=== PATIENT | male | born 1990 | race Caucasian/White ===

== ENCOUNTER 2018-08-30 11:38 | Emergency (ER) | payer BC ==
[~2018-08-30] VITALS: Ht 170.2 cm; Wt 97.5 kg
[~2018-08-30 11:38] MED LIST: HYDR-3730 PO; TRM50T PO
[2018-08-30] MEDS ORDERED: NS IV 1000 ML 1,000 ML IV ONE (11:58)
[2018-08-30 12:08] LABS: BASOPHILS % (AUTO) 0 % (0-10); EOSINOPHILS % (AUTO) 0 % (0-10); HEMATOCRIT 48 % (40-54); HEMOGLOBIN 17.5 G/DL (13.3-17.7); LYMPHOCYTES # (AUTO) 2.5 X 10^3 (1.0-4.0); LYMPHOCYTES % (AUTO) 35 % (12-44); MEAN CORPUSCULAR HEMOGLOBIN 31 PG (25-34); MEAN CORPUSCULAR HGB CONC 37 G/DL (32-36); MEAN CORPUSCULAR VOLUME 85 FL (80-99); MEAN PLATELET VOLUME 9.2 FL (7.4-10.4); MONOCYTES # (AUTO) 0.5 X 10^3 (0.0-1.0); MONOCYTES % (AUTO) 8 % (0-12); NEUTROPHILS % (AUTO) 57 % (42-75); PLATELET COUNT 322 10^3/uL (130-400); RED CELL DISTRIBUTION WIDTH 12.6 % (10.0-14.5)
--- NOTE | 2018-08-30 12:08 | ED Neurological Problem ---
General Chief Complaint: Neuro-Stroke Like Symptoms Stated Complaint: HIGH BP,DIZZINESS, DIFFICULT CONCENTRATION Nursing Triage Note: pt presents to ed via private auto from from Dr. Schaffer office. 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 reports no memory of the test itself but remebers being in class. reports symptoms starting about 0800. Nursing Sepsis Screen: No Definite Risk Source: patient Exam Limitations: no limitations History of Present Illness Date Seen by Provider: Aug 30, 2018 Time Seen by Provider: 11:42 Initial Comments Here with report of significant dizziness that started acutely at about 8 AM when he was sitting down take a test. He started feeling dizzy put his head down. Later his speech became slowed and he was having a problem keeping up with conversation and visual cues. He went to his doctor's office who then sent him here for further evaluation. He has never had anything like this before. Denies recent injury. Denies recent illness. Denies weakness. Arrives with friend. Timing/Duration: 1-3 hours Severity: moderate, severe Associated Symptoms: confusion; No fever/chills, No nausea/vomiting, No seizures; slurred speech, other (dizziness) Allergies and Home Medications Allergies Coded Allergies: No Known Drug Allergies (Unverified , 04/30/11) Home Medications No Active Prescriptions or Reported Meds Patient Home Medication List Home Medication List Reviewed: Yes Review of Systems Review of Systems Constitutional: see HPI, chills (are all is good around the above the shoulders. She is doing better so milligrams cataractThis but is getting the family agreed it's care may be just TIAs got up to make sure all other symptoms. I interpreted ago); No fever (still) Eyes: See HPI; Denies Inflammation, Denies Pain Ears, Nose, Mouth, Throat: see HPI Respiratory: no symptoms reported Cardiovascular: No palpitations, No syncope Gastrointestinal: No abdominal pain, No nausea (7), No vomiting Genitourinary: no symptoms reported Musculoskeletal: no symptoms reported Skin: no symptoms reported All Other Systems Reviewed Negative Unless Noted: Yes Past Szkmegw-Xmavht-Vyrenx Hx Past Med/Social Hx: Reviewed Nursing Past Med/Soc Hx Patient Social History Alcohol Use: Occasionally Uses Recreational Drug Use: No Smoking Status: Never a Smoker Recent Foreign Travel: No Contact w/Someone Who Travel: No Recent Infectious Disease Expo: No Physical Abuse: No Sexual Abuse: No Mistreated: No Fear: No Seasonal Allergies Seasonal Allergies: No Past Medical History Surgeries: Yes (right meniscus surgery, urethral dilation- 8yrs old) Appendectomy, Orthopedic Respiratory: No Cardiac: No Neurological: No Reproductive Disorders: No Genitourinary: No Gastrointestinal: No Musculoskeletal: No Endocrine: No HEENT: No Cancer: No Psychosocial: No Integumentary: No Blood Disorders: No Family Medical History Reviewed Nursing Family Hx Arthritis 19 MOTHER Prostate cancer 19 FATHER Thyroid disease 19 MOTHER No Pertinent Family Hx Physical Exam Vital Signs Vital Signs - First Documented 08/30/18 11:50 Temp 99.1 Pulse 113 Resp 20 B/P (MAP) 173/109 (130) Pulse Ox 100 Capillary Refill : Less Than 3 Seconds Height, Weight, BMI Height: 5'7.00" Weight: 215lbs. 3.2oz. 97.680567tw; 32.3 BMI Method:Stated General Appearance: WD/WN, no apparent distress HEENT: PERRL/EOMI, TMs normal, pharynx normal Neck: full range of motion, supple Respiratory: lungs clear, normal breath sounds Cardiovascular: no murmur, tachycardia Gastrointestinal: non tender, soft Back: normal inspection, no CVA tenderness, no vertebral tenderness Extremities: non-tender, normal inspection Neurologic/Psychiatric: alert, oriented x 3 Crainal Nerves: normal hearing, normal speech, PERRL Coordination/Gait: normal finger to nose Motor/Sensory: no motor deficit, no sensory deficit, no pronator drift Skin: normal color, warm/dry Progress/Results/Core Measures Results/Orders Lab Results Laboratory Tests Test 08/30/18 11:49 08/30/18 11:50 08/30/18 13:31 Range/Units Glucometer 93 70-110 MG/DL White Blood Count 7.0 4.3-11.0 10^3/uL Red Blood Count 5.62 4.35-5.85 10^6/uL Hemoglobin 17.5 13.3-17.7 G/DL Hematocrit 48 40-54 % Mean Corpuscular Volume 85 80-99 FL Mean Corpuscular Hemoglobin 31 25-34 PG Mean Corpuscular Hemoglobin Concent 37 H 32-36 G/DL Red Cell Distribution Width 12.6 10.0-14.5 % Platelet Count 322 130-400 10^3/uL Mean Platelet Volume 9.2 7.4-10.4 FL Neutrophils (%) (Auto) 57 42-75 % Lymphocytes (%) (Auto) 35 12-44 % Monocytes (%) (Auto) 8 0-12 % Eosinophils (%) (Auto) 0 0-10 % Basophils (%) (Auto) 0 0-10 % Neutrophils # (Auto) 4.0 1.8-7.8 X 10^3 Lymphocytes # (Auto) 2.5 1.0-4.0 X 10^3 Monocytes # (Auto) 0.5 0.0-1.0 X 10^3 Eosinophils # (Auto) 0.0 0.0-0.3 10^3/uL Basophils # (Auto) 0.0 0.0-0.1 10^3/uL Prothrombin Time 12.6 12.2-14.7 SEC INR Comment 0.9 0.8-1.4 Activated Partial Thromboplast Time 31 24-35 SEC D-Dimer < 0.27 0.00-0.49 UG/ML Sodium Level 139 135-145 MMOL/L Potassium Level 4.1 3.6-5.0 MMOL/L Chloride Level 102 98-107 MMOL/L Carbon Dioxide Level 26 21-32 MMOL/L Anion Gap 11 5-14 MMOL/L Blood Urea Nitrogen 13 7-18 MG/DL Creatinine 1.29 0.60-1.30 MG/DL Estimat Glomerular Filtration Rate > 60 BUN/Creatinine Ratio 10 Glucose Level 95 70-105 MG/DL Calcium Level 10.5 H 8.5-10.1 MG/DL Corrected Calcium 8.5-10.1 MG/DL Total Bilirubin 0.9 0.1-1.0 MG/DL Aspartate Amino Transf (AST/SGOT) 18 5-34 U/L Alanine Aminotransferase (ALT/SGPT) 49 0-55 U/L Alkaline Phosphatase 79 40-136 U/L Troponin I < 0.028 <0.028 NG/ML Total Protein 8.9 H 6.4-8.2 GM/DL Albumin 5.2 H 3.2-4.5 GM/DL Urine Color YELLOW Urine Clarity CLEAR Urine pH 7 5-9 Urine Specific Reeves 1.005 L 1.016-1.022 Urine Protein NEGATIVE NEGATIVE Urine Glucose (UA) NEGATIVE NEGATIVE Urine Ketones NEGATIVE NEGATIVE Urine Nitrite NEGATIVE NEGATIVE Urine Bilirubin NEGATIVE NEGATIVE Urine Urobilinogen NORMAL NORMAL MG/DL Urine Leukocyte Esterase NEGATIVE NEGATIVE Urine RBC (Auto) NEGATIVE NEGATIVE Urine RBC NONE /HPF Urine WBC NONE /HPF Urine Crystals NONE /LPF Urine Bacteria NEGATIVE /HPF Urine Casts NONE /LPF Urine Mucus NEGATIVE /LPF Urine Culture Indicated NO My Orders Orders - MICHELA CARMONA MD Cbc With Automated Diff (08/30/18 11:58) Protime With Inr (08/30/18 11:58) Partial Thromboplastin Time (08/30/18 11:58) Comprehensive Metabolic Panel (08/30/18 11:58) Fibrin Degradation Products (08/30/18 11:58) Troponin I (08/30/18 11:58) Ua Culture If Indicated (08/30/18 11:58) Chest 1 View, Ap/Pa Only (08/30/18 11:58) Ekg Tracing (08/30/18 11:58) Nothing By Mouth (08/30/18 Dinner) Accucheck Stat ONCE (08/30/18 11:58) Saline Lock/Iv-Start (08/30/18 11:58) Saline Lock/Iv-Start (08/30/18 11:58) Vital Signs Stroke Patient Q15M (08/30/18 11:58) O2 (08/30/18 11:58) Intake & Output 06,14,22 (08/30/18 11:58) Monitor-Rhythm Ecg Trace Only (08/30/18 11:58) Dysphagia Screening Tool (08/30/18 11:58) Post Thrombolytic Adminstratio (08/30/18 11:58) Lipid Panel (08/31/18 06:00) Saline Lock/Iv-Start (08/30/18 11:58) Ns Iv 1000 Ml (Sodium Chloride 0.9%) (08/30/18 11:58) Iohexol Injection (Omnipaque 350 Mg/Ml 1 (08/30/18 12:15) Received Contrast (Hold Metformin- Contr (08/30/18 12:15) Ct Angio Head/Neck (08/30/18 12:02) Meclizine Tablet (Antivert Tablet) (08/30/18 12:45) Dexamethasone Injection (Decadron Inject (08/30/18 14:00) Medications Given in ED Current Medications Medications Dose Ordered Sig/Tobias Route Start Time Stop Time Status Last Admin Dose Admin Dexamethasone Sodium Phosphate 10 mg ONCE ONCE IV 08/30/18 14:00 08/30/18 14:01 DC 08/30/18 14:15 10 MG Meclizine HCl 25 mg ONCE ONCE PO 08/30/18 12:45 08/30/18 12:46 DC 08/30/18 13:12 25 MG Sodium Chloride 1,000 ml @ 0 mls/hr Q0M ONCE IV 08/30/18 11:58 08/30/18 12:01 DC 08/30/18 12:14 0 MLS/HR Vital Signs/I&O 08/30/18 11:50 Temp 99.1 Pulse 113 Resp 20 B/P (MAP) 173/109 (130) Pulse Ox 100 Blood Pressure Mean: 130 Progress Progress Note : Progress Note Seen and evaluated. Stroke activation initiated. Stroke order set initiated. Rapid CT assessment complete. Stroke scale 0 and no bleed. No indication for TPA at this point. CT assessment included CT angiogram of the head and neck. Patient is still dizzy. Meclizine 25 mg by mouth given. Fluids continue. 1450: Patient has had Decadron 10 mg IV and I have discussed the case with his PCP, . Patient is free of symptoms currently. Only findings are left maxillary sinusitis. Patient does have history of inner ear problems as a child. This may be cause of his problems. We will go ahead and treat sinusitis. I did discuss all the findings and concerns with the patient and his father. At this point patient is safe for discharge home. Discharged home with return precautions. Patient verbalize understanding instructions and agreement with plan. Initial ECG Impression Date: Aug 30, 2018 Initial ECG Impression Time: 11:50 Initial ECG Rate: 89 Initial ECG Rhythm: Normal Sinus Initial ECG Comparisson: Unchanged Comment Sinus rhythm. Inferior Q waves. Normal axis. No evidence of ST elevation SD. Similar to previous of 02/28/13. Interpreted by me. Diagnostic Imaging Diagonstic Imaging: CT Plain Films/CT/US/NM/MRI: head, other Comments [facility], [place] NAME: SUNDAY BERMEONIRANJAN Hardy [facility] REC#: [id number] PT STATUS: REG ER : 1990 PHYSICIAN: MICHELA CARMONA MD ADMIT DATE: 08/30/18/ER Draft Date of Exam:08/30/18 CT ANGIO HEAD/NECK CLINICAL INDICATION: Patient with blood pressure, dizziness. EXAMS: 1: Head CT with and without IV contrast. 2: CT angiogram of the head and neck performed with 75 cc of Omnipaque 350 IV contrast. Sagittal and coronal MIP reformations were created for better visualization of vascular anatomy. COMPARISON: None. FINDINGS: HEAD CT: There is no evidence of acute cerebral infarct, intracranial hemorrhage, or gross mass effect. There is no abnormal IV contrast enhancement. The brain parenchymal volume appears appropriate for patient's age. There is normal claire-white matter distinction. There is no significant midline shift or herniation. There is no evidence of hydrocephalus. The basal cisterns are unremarkable. The skull, extracranial soft tissue, and orbits are unremarkable. The paranasal sinuses are unremarkable. Temporal bones show no significant abnormality. CT ANGIOGRAM: There is dense contrast seen within the left subclavian vein, left innominate vein, and superior vena cava which obscures portions of the aortic arch and proximal great vessels. There is common origin of the brachiocephalic artery and left common carotid artery which correlates to bovine arch. Three-vessel aortic arch is seen. The mid and distal portion of the left subclavian artery is obscured by dense streak artifact. Otherwise, the remainder of the proximal left subclavian artery is patent. The brachiocephalic artery and proximal portions of the right CCA and right brachiocephalic artery are obscured by streak artifact. Otherwise, the right subclavian artery and right common carotid artery are patent. The left common carotid artery is patent. The bilateral cervical ICA and bilateral ECA are patent. Codominant cervical vertebral arteries are seen. The visualized portions of the bilateral cervical vertebral arteries are patent. The intradural bilateral vertebral arteries, basilar artery, superior cerebellar artery, and bilateral waxer are patent. The petrous and cavernous portions of the bilateral ICA are patent. The bilateral A1 ACAs, anterior communicating artery, and A2 ACAs and their distal branches are patent. The bilateral MCAs are patent. The neck soft tissue structures and visualized upper lung bourgeois are clear. There is mild straightening of the cervical spine which is nonspecific. There is no significant bony central canal or neural foramen narrowing. There is mild mucosal thickening involving the left maxillary sinus. Temporal bone structures show no significant abnormality. The dural venous sinuses are patent. IMPRESSION: 1: There is mild left maxillary sinus disease. Otherwise, unremarkable CT scan of the brain. 2: Unremarkable CT angiogram of the [place] and neck. The dural venous sinuses are patent. Dictated on workstation # [id number] Dict: 08/30/18 1255 Trans: 08/30/18 1317 [id number] Interpreted by: BRANDEN ADKINS MD Electronically signed by: Estelagonsbianca Imaging: Xray Plain Films/CT/US/NM/MRI: chest Comments [facility], [place] NAME: FABIENNE BERMEO V MED REC#: [id number] PT STATUS: REG ER : 1990 PHYSICIAN: MICHELA CARMONA MD ADMIT DATE: 08/30/18/ER Draft Date of Exam:08/30/18 CHEST 1 VIEW, AP/PA ONLY INDICATION: Dizziness and lightheadedness. TIME OF EXAM: 01:14 p.m. COMPARISON: No prior studies are available for comparison. FINDINGS: The heart size is normal. The pulmonary vascularity is unremarkable. The lungs are clear. No infiltrate, effusion or pneumothorax is detected. IMPRESSION: No acute cardiopulmonary process is detected. Dictated on workstation # [id number] Dict: 08/30/18 1339 Trans: 08/30/18 1342 [facility] [id number] Interpreted by: LISHA DORADO MD Electronically signed by: Departure Impression Primary Impression: Left maxillary sinusitis Additional Impression: Dizziness Disposition: 01 HOME, SELF-CARE Condition: Improved Departure-Patient Inst. Decision time for Depature: 15:01 Referrals: MODESTO WRAY MD (PCP/Family) Primary Care Physician Patient Instructions: Sinusitis, Adult (DC), Vertigo (a Type of Dizziness) (DC) Add. Discharge Instructions: All discharge instructions reviewed with patient and/or family. Voiced understanding. Take medications as directed. Drink plenty of fluids. You may get over-the- counter meclizine 25 mg and take one every 8 hours as needed for dizziness. Take other medications as directed. Follow-up with your Dr. in a few days for recheck and further evaluation. Return for worsening, fever, vomiting, weakness , breathing problems or other concerns as needed. Scripts Cephalexin (Cephalexin) 500 Mg Tablet 500 MG PO TID, #30 TAB 0 Refills Prov: MICHELA CARMONA MD 08/30/18 Copy Copies To 1: MODESTO WRAY MD, TIMOTHY D MD Aug 30, 2018 12:08
[2018-08-30] MEDS ORDERED: IOHEXOL 350 MG/ML 100 ML (OMNIPAQUE 350) VIAL IV ONE (12:15)
[2018-08-30] MEDS ORDERED: HOLD METFORMIN - RECEIVED CONTRAST 20 ML VIAL IV SCH (12:15)
[2018-08-30 12:16] LABS: INR 0.9 (0.8-1.4); PARTIAL THROMBOPLASTIN TIME 31 SEC (24-35); PROTHROMBIN TIME PATIENT 12.6 SEC (12.2-14.7)
[2018-08-30 12:22] LABS: ALANINE AMINOTRANSFERASE 49 U/L (0-55); ALBUMIN 5.2 GM/DL (3.2-4.5); ALKALINE PHOSPHATASE 79 U/L (40-136); BILIRUBIN,TOTAL 0.9 MG/DL (0.1-1.0); BUN/CREATININE RATIO 10; CALCIUM 10.5 MG/DL (8.5-10.1); CARBON DIOXIDE 26 MMOL/L (21-32); CHLORIDE 102 MMOL/L (98-107); CREATININE SERUM 1.29 MG/DL (0.60-1.30); GFR ESTIMATED > 60; GLUCOSE 95 MG/DL (70-105); POTASSIUM 4.1 MMOL/L (3.6-5.0); SODIUM 139 MMOL/L (135-145); TOTAL PROTEIN 8.9 GM/DL (6.4-8.2)
[2018-08-30] MEDS ORDERED: MECLIZINE 25 MG (ANTIVERT) TAB PO ONE (12:45)
[2018-08-30 13:01] LABS: FIBRIN DEGRADATION PRODUCTS < 0.27 UG/ML (0.00-0.49)
--- NOTE | 2018-08-30 13:18 | Diagnostic Imaging Report ---
CLINICAL INDICATION: Patient with blood pressure, dizziness. EXAMS: 1: Head CT with and without IV contrast. 2: CT angiogram of the head and neck performed with 75 cc of Omnipaque 350 IV contrast. Sagittal and coronal MIP reformations were created for better visualization of vascular anatomy. COMPARISON: None. FINDINGS: HEAD CT: There is no evidence of acute cerebral infarct, intracranial hemorrhage, or gross mass effect. There is no abnormal IV contrast enhancement. The brain parenchymal volume appears appropriate for patient's age. There is normal claire-white matter distinction. There is no significant midline shift or herniation. There is no evidence of hydrocephalus. The basal cisterns are unremarkable. The skull, extracranial soft tissue, and orbits are unremarkable. The paranasal sinuses are unremarkable. Temporal bones show no significant abnormality. CT ANGIOGRAM: There is dense contrast seen within the left subclavian vein, left innominate vein, and superior vena cava which obscures portions of the aortic arch and proximal great vessels. There is common origin of the brachiocephalic artery and left common carotid artery which correlates to bovine arch. Three-vessel aortic arch is seen. The mid and distal portion of the left subclavian artery is obscured by dense streak artifact. Otherwise, the remainder of the proximal left subclavian artery is patent. The brachiocephalic artery and proximal portions of the right CCA and right brachiocephalic artery are obscured by streak artifact. Otherwise, the right subclavian artery and right common carotid artery are patent. The left common carotid artery is patent. The bilateral cervical ICA and bilateral ECA are patent. Codominant cervical vertebral arteries are seen. The visualized portions of the bilateral cervical vertebral arteries are patent. The intradural bilateral vertebral arteries, basilar artery, superior cerebellar artery, and bilateral x ray developer are patent. The petrous and cavernous portions of the bilateral ICA are patent. The bilateral A1 ACAs, anterior communicating artery, and A2 ACAs and their distal branches are patent. The bilateral MCAs are patent. The neck soft tissue structures and visualized upper lung bourgeois are clear. There is mild straightening of the cervical spine which is nonspecific. There is no significant bony central canal or neural foramen narrowing. There is mild mucosal thickening involving the left maxillary sinus. Temporal bone structures show no significant abnormality. The dural venous sinuses are patent. IMPRESSION: 1: There is mild left maxillary sinus disease. Otherwise, unremarkable CT scan of the brain. 2: Unremarkable CT angiogram of the [place] and neck. The dural venous sinuses are patent. Dictated by: Dictated on workstation # [id number]
[2018-08-30 13:42] LABS: BILIRUBIN,URINE NEGATIVE (NEGATIVE); CLARITY,URINE CLEAR; COLOR,URINE YELLOW; GLUCOSE, URINE (UA) NEGATIVE (NEGATIVE); KETONES,URINE NEGATIVE (NEGATIVE); LEUKOCYTE ESTERASE ,URINE NEGATIVE (NEGATIVE); NITRITE,URINE NEGATIVE (NEGATIVE); PH,URINE 7 (5-9); PROTEIN,URINE NEGATIVE (NEGATIVE); UROBILINOGEN,URINE NORMAL (NORMAL)
--- NOTE | 2018-08-30 13:43 | Diagnostic Imaging Report ---
INDICATION: Dizziness and lightheadedness. TIME OF EXAM: 01:14 p.m. COMPARISON: No prior studies are available for comparison. FINDINGS: The heart size is normal. The pulmonary vascularity is unremarkable. The lungs are clear. No infiltrate, effusion or pneumothorax is detected. IMPRESSION: No acute cardiopulmonary process is detected. Dictated by: Dictated on workstation # [id number]
[2018-08-30 13:52] LABS: BACTERIA,URINE NEGATIVE /HPF
[2018-08-30] MEDS ORDERED: DEXAMETHASONE 10 MG/ML (DECADRON) 1 ML VIAL IV ONE (14:00)
[2018-08-30] MEDS ORDERED: CEPH500T PO (15:03)
[2018-08-30 15:12] VITALS: BP 133/78
== END 2018-08-30 15:12 | disposition home or self-care (01) ==
LOC: EDUNIT# 11:38 → ER 11:40
DX: J32.9 Chronic sinusitis, unspecified (principal); R42 Dizziness and giddiness; Z98.890 Other specified postprocedural states; Z90.49 Acquired absence of other specified parts of digestive tract; Z85.46 Personal history of malignant neoplasm of prostate
CPT/HCPCS: 36415; 70496; 70498; 71045; 80053; 81000; 82962; 84484; 85025; 85379; 85610; 85730; 93005; 93041; 96361; 96374

== ENCOUNTER → 2020-03-08 | Outpatient (CLI) | payer BC, OTHER ==
[~2020-03-08] MED LIST changes: +CEPH500T PO
[2020-03-08 09:27] LABS: BASOPHILS % (AUTO) 0 % (0-10); EOSINOPHILS # (AUTO) 0.1 10^3/uL (0.0-0.3); EOSINOPHILS % (AUTO) 1 % (0-10); HEMATOCRIT 49 % (40-54); HEMOGLOBIN 16.8 g/dL (13.3-17.7); LYMPHOCYTES # (AUTO) 3.8 10^3/uL (1.0-4.0); LYMPHOCYTES % (AUTO) 54 % (12-44); MEAN CORPUSCULAR HEMOGLOBIN 31 pg (25-34); MEAN CORPUSCULAR HGB CONC 35 g/dL (32-36); MEAN CORPUSCULAR VOLUME 88 fL (80-99); MEAN PLATELET VOLUME 9.3 fL (9.0-12.2); MONOCYTES # (AUTO) 0.5 10^3/uL (0.0-1.0); MONOCYTES % (AUTO) 6 % (0-12); NEUTROPHILS # (AUTO) 2.7 10^3/uL (1.8-7.8); NEUTROPHILS % (AUTO) 38 % (42-75); PLATELET COUNT 271 10^3/uL (130-400)
[2020-03-08 09:36] LABS: ALBUMIN 4.6 GM/DL (3.2-4.5); CHLORIDE 105 MMOL/L (98-107); POTASSIUM 4.4 MMOL/L (3.6-5.0); SODIUM 141 MMOL/L (135-145)
[2020-03-08 09:37] LABS: CALCIUM 9.8 MG/DL (8.5-10.1)
[2020-03-08 09:38] LABS: TRIGLYCERIDES 92 MG/DL (<150); VLDL CHOLESTEROL 18 MG/DL (5-40)
[2020-03-08 09:39] LABS: GLUCOSE 92 MG/DL (70-105)
[2020-03-08 09:40] LABS: BILIRUBIN,TOTAL 0.7 MG/DL (0.1-1.0); CARBON DIOXIDE 27 MMOL/L (21-32)
[2020-03-08 09:42] LABS: ALKALINE PHOSPHATASE 77 U/L (40-136); CREATININE SERUM 1.26 MG/DL (0.60-1.30); GFR ESTIMATED > 60
[2020-03-08 09:43] LABS: CHOLESTEROL 189 MG/DL (< 200)
[2020-03-08 09:44] LABS: BUN/CREATININE RATIO 9
[2020-03-08 09:45] LABS: ALANINE AMINOTRANSFERASE 24 U/L (0-55); HDL CHOLESTEROL 46 MG/DL (40-60); MAGNESIUM 1.8 MG/DL (1.6-2.4)
[2020-03-08 10:17] LABS: ERYTHROCYTE SEDIMENTATION RATE 1 MM/HR (0-15)
== END ==
LOC: LAB 09:03
PROVIDERS: ATTEND Internal Medicine Cardiovascular Disease
DX: R55 Syncope and collapse (principal); R00.2 Palpitations
CPT/HCPCS: 36415; 80053; 80061; 83735; 84443; 85025; 85652

== ENCOUNTER → 2020-03-11 | Day surgery (SDC) | payer OTHER ==
[~2020-03-11] MED LIST changes: +LIDOCAINE 1% INJ 20 ML 20 ML VIAL ONE
[2020-03-11 11:12] VITALS: BP 139/89
--- NOTE | 2020-03-11 11:36 | Cardiac Procedure Note-CS/ASA ---
Pre-Procedure Note Pre-Op Procedure Note H&P Reviewed The H&P was reviewed, patient examined and no changes noted. Date H&P Reviewed: Mar 11, 2020 Time H&P Reviewed: 11:36 Conscious Sedation Pre-Proced Time 11:36 ASA Score 3 For ASA 3 and 4: Consider anesthesia and medical clearance. Also, for patients with a history of failed moderate sedation consider anesthesia. Airway Lungs Heart ASA score ASA 1: a normal healthy patient ASA 2: a patient with a mild systemic disease (mid diabetes, controlled hypertension, obesity ASA 3: a patient with a severe systemic disease that limits activity (angina, COPD, prior Myocardial infarction) ASA 4: a patient with an incapacitating disease that is a constant threat to life (CHF, renal failure) ASA 5: a moribund patient not expected to survive 24 hrs. (ruptured aneurysm) ASA 6: a declared brain- patient whose organs are being harvested. For emergent operations, add the letter E after the classification Mallampati Classification Grade 2 Sedation Plan Analgesia, Amnesia, Plan communicated to team members, Discussed options with patient/fam, Discussed risks with patient/fam The patient is an appropriate candidate to undergo the planned procedure, sedation, and anesthesia. The patient immediately re-assessed prior to indication. ISA BAILEY MD FACP FAC CCDS Mar 11, 2020 11:36
--- NOTE | 2020-03-11 13:52 | OPERATIVE REPORT ---
DATE OF SERVICE: PREOPERATIVE DIAGNOSES: Near syncope and palpitations. POSTOPERATIVE DIAGNOSES: Near syncope and palpitations. PROCEDURE: Implantable loop recorder implantation. INDICATIONS: The patient is a 29-year-old man who has been experiencing near syncope and palpitations. These episodes are infrequent. Implantable loop recorder implantation was carried out after having obtained an informed consent. DESCRIPTION OF PROCEDURE: [facility] The left prepectoral area was prepared and draped in the usual sterile fashion. Lidocaine 1% was used for local anesthesia. The tools provided with the [employer]hare Reveal LINQ device were used to make a subcutaneous pocket anterior to the fourth intercostal space on the left side into which the device was placed and the skin edges were closed with Dermabond and Steri-Strips. He tolerated the procedure well. Job ID: [id number] DocumentID: [id number] Dictated Date: 03/11/2020 11:46:44 Etched Circuit Processor Date: 03/11/2020 13:52:07 Dictated By: ISA BAILEY MD, MA, FACP, FACC,
== END | disposition home or self-care (01) ==
LOC: CATH 10:43
PROVIDERS: ATTEND Internal Medicine Cardiovascular Disease
DX: R55 Syncope and collapse (principal); R00.2 Palpitations
CPT/HCPCS: 33285; C1764

== ENCOUNTER 2020-03-12 21:05 | Emergency (ER) | payer OTHER ==
[~2020-03-12] VITALS: Ht 170.2 cm; Wt 95.5 kg
[~2020-03-12 21:05] MED LIST changes: -LIDOCAINE 1% INJ 20 ML 20 ML VIAL ONE
--- NOTE | 2020-03-12 21:11 | NUR ---
loop recorder interpreted/sent by eva marquez
[2020-03-12 21:25] LABS: BASOPHILS % (AUTO) 0 % (0-10); EOSINOPHILS # (AUTO) 0.1 10^3/uL (0.0-0.3); EOSINOPHILS % (AUTO) 1 % (0-10); HEMATOCRIT 49 % (40-54); HEMOGLOBIN 17.4 g/dL (13.3-17.7); LYMPHOCYTES # (AUTO) 2.2 10^3/uL (1.0-4.0); LYMPHOCYTES % (AUTO) 25 % (12-44); MEAN CORPUSCULAR HEMOGLOBIN 31 pg (25-34); MEAN CORPUSCULAR HGB CONC 35 g/dL (32-36); MEAN CORPUSCULAR VOLUME 87 fL (80-99); MEAN PLATELET VOLUME 9.4 fL (9.0-12.2); MONOCYTES # (AUTO) 0.6 10^3/uL (0.0-1.0); MONOCYTES % (AUTO) 6 % (0-12); NEUTROPHILS # (AUTO) 5.8 10^3/uL (1.8-7.8); NEUTROPHILS % (AUTO) 68 % (42-75); PLATELET COUNT 295 10^3/uL (130-400); WHITE BLOOD COUNT 8.6 10^3/uL (4.3-11.0)
[2020-03-12] MEDS ORDERED: meTOprolol 5 MG/5 ML (LOPRESSOR) VIAL IV ONE (21:30)
[2020-03-12 21:36] LABS: ALBUMIN 4.8 GM/DL (3.2-4.5); CHLORIDE 102 MMOL/L (98-107); SODIUM 139 MMOL/L (135-145)
[2020-03-12 21:37] LABS: CALCIUM 9.9 MG/DL (8.5-10.1); INR 0.9 (0.8-1.4); PROTHROMBIN TIME PATIENT 12.7 SEC (12.2-14.7)
--- NOTE | 2020-03-12 21:37 | Diagnostic Imaging Report ---
PATIENT HISTORY: Chest pain. Dizziness and syncope. TECHNIQUE: Single frontal view of the chest. COMPARISON: 08/30/2018. FINDINGS: The lung volumes are normal. No focal consolidation is seen. No large pleural effusion or pneumothorax is seen. The cardiomediastinal silhouette is normal in size and contour. No acute osseous abnormality is seen. surveillance system monitor device is noted. IMPRESSION: No acute pulmonary abnormality seen. Dictated by: Dictated on workstation # [id number]
[2020-03-12 21:38] LABS: GLUCOSE 104 MG/DL (70-105)
[2020-03-12 21:39] LABS: TOTAL PROTEIN 8.5 GM/DL (6.4-8.2)
[2020-03-12 21:40] LABS: BILIRUBIN,TOTAL 0.6 MG/DL (0.1-1.0); CARBON DIOXIDE 25 MMOL/L (21-32)
[2020-03-12 21:42] LABS: ALKALINE PHOSPHATASE 98 U/L (40-136); CREATININE SERUM 1.37 MG/DL (0.60-1.30); GFR ESTIMATED > 60
[2020-03-12 21:43] LABS: BUN/CREATININE RATIO 11
[2020-03-12 21:45] LABS: ALANINE AMINOTRANSFERASE 28 U/L (0-55); MAGNESIUM 2.1 MG/DL (1.6-2.4)
--- NOTE | 2020-03-12 21:50 | ED Cardiac General ---
History of Present Illness General Chief Complaint: Cardiac/General Problems Stated Complaint: PALPITATIONS Nursing Triage Note: c/o palpitations/near syncope since approx. 1900. loop recorder placed 03/11/2020 Source: patient, old records Exam Limitations: no limitations History of Present Illness Date Seen by Provider: Mar 12, 2020 Time Seen by Provider: 21:07 Initial Comments This 29-year-old young man presents to the emergency room with palpitations and tachycardia. He has been under evaluation by Dr. Agee for episodes of palpitations and near syncope. He had a loop recorder placed yesterday. He denies near syncope, shortness of breath, or chest pain this evening. He denies any use of stimulants or illicit substances. He has not had any recent alcohol. Symptoms started within 2 hours of presentation. Allergies and Home Medications Allergies Coded Allergies: No Known Drug Allergies (Unverified , 04/30/11) Home Medications Cephalexin 500 Mg Tablet, 500 MG PO TID Prescribed by: MICHELA CARMONA on 08/30/18 1503 Patient Home Medication List Home Medication List Reviewed: Yes Review of Systems Review of Systems Constitutional: no symptoms reported EENTM: No Symptoms Reported Respiratory: No Symptoms Reported Cardiovascular: See HPI Gastrointestinal: Nausea Genitourinary: No Symptoms Reported Musculoskeletal: no symptoms reported Skin: no symptoms reported Psychiatric/Neurological: No Symptoms Reported Endocrine: No Symptoms Reported Hematologic/Lymphatic: No Symptoms Reported Past Ilzdxlt-Mjafiw-Skdcxc Hx Past Med/Social Hx: Reviewed Nursing Past Med/Soc Hx Patient Social History Alcohol Use: Denies Use Recreational Drug Use: No Smoking Status: Never a Smoker Recent Foreign Travel: No Contact w/Someone Who Travel: No Recent Infectious Disease Expo: No Recent Hopitalizations: No Immunizations Up To Date Tetanus Booster (TDap): Unknown Seasonal Allergies Seasonal Allergies: No Past Medical History Surgeries: Yes (right meniscus surgery, urethral dilation- 8yrs old, loop recorder placed) Appendectomy, Cardiac (loop recorder), Orthopedic Respiratory: No Cardiac: Yes (near syncope) Irregular Heartbeat, Palpitations Neurological: No Reproductive Disorders: No Genitourinary: No Gastrointestinal: No Musculoskeletal: No Endocrine: No HEENT: No Cancer: No Psychosocial: No Integumentary: No Blood Disorders: No Family Medical History Arthritis 19 MOTHER Prostate cancer 19 FATHER Thyroid disease 19 MOTHER No Pertinent Family Hx Physical Exam Vital Signs Vital Signs - First Documented 03/12/20 21:08 Temp 36.2 Pulse 120 Resp 18 B/P (MAP) 144/104 (117) Pulse Ox 100 O2 Delivery Room Air Capillary Refill : Less Than 3 Seconds Height, Weight, BMI Height: 5'7.00" Weight: 215lbs. 3.2oz. 97.237347ua; 32.00 BMI Method:Stated General Appearance: No Apparent Distress, WD/WN HEENT: PERRL/EOMI, Normal ENT Inspection Neck: Normal Inspection Respiratory: Lungs Clear, Normal Breath Sounds, No Accessory Muscle Use Cardiovascular: No Edema, No Murmur, Tachycardia Gastrointestinal: No Distended Extremity: Normal Inspection, No Pedal Edema Neurologic/Psychiatric: Alert, Oriented x3, No Motor/Sensory Deficits, Normal Mood/Affect, director talent acquisition II-XII Norm as Tested Skin: Normal Color, Warm/Dry Progress/Results/Core Measures Results/Orders Lab Results Laboratory Tests Test 03/12/20 21:18 Range/Units White Blood Count 8.6 4.3-11.0 10^3/uL Red Blood Count 5.69 H 4.30-5.52 10^6/uL Hemoglobin 17.4 13.3-17.7 g/dL Hematocrit 49 40-54 % Mean Corpuscular Volume 87 80-99 fL Mean Corpuscular Hemoglobin 31 25-34 pg Mean Corpuscular Hemoglobin Concent 35 32-36 g/dL Red Cell Distribution Width 11.4 10.0-14.5 % Platelet Count 295 130-400 10^3/uL Mean Platelet Volume 9.4 9.0-12.2 fL Immature Granulocyte % (Auto) 0 % Neutrophils (%) (Auto) 68 42-75 % Lymphocytes (%) (Auto) 25 12-44 % Monocytes (%) (Auto) 6 0-12 % Eosinophils (%) (Auto) 1 0-10 % Basophils (%) (Auto) 0 0-10 % Neutrophils # (Auto) 5.8 1.8-7.8 10^3/uL Lymphocytes # (Auto) 2.2 1.0-4.0 10^3/uL Monocytes # (Auto) 0.6 0.0-1.0 10^3/uL Eosinophils # (Auto) 0.1 0.0-0.3 10^3/uL Basophils # (Auto) 0.0 0.0-0.1 10^3/uL Immature Granulocyte # (Auto) 0.0 0.0-0.1 10^3/uL Prothrombin Time 12.7 12.2-14.7 SEC INR Comment 0.9 0.8-1.4 Activated Partial Thromboplast Time 30 24-35 SEC Sodium Level 139 135-145 MMOL/L Potassium Level 4.0 3.6-5.0 MMOL/L Chloride Level 102 98-107 MMOL/L Carbon Dioxide Level 25 21-32 MMOL/L Anion Gap 12 5-14 MMOL/L Blood Urea Nitrogen 15 7-18 MG/DL Creatinine 1.37 H 0.60-1.30 MG/DL Estimat Glomerular Filtration Rate > 60 BUN/Creatinine Ratio 11 Glucose Level 104 70-105 MG/DL Calcium Level 9.9 8.5-10.1 MG/DL Corrected Calcium 8.5-10.1 MG/DL Magnesium Level 2.1 1.6-2.4 MG/DL Total Bilirubin 0.6 0.1-1.0 MG/DL Aspartate Amino Transf (AST/SGOT) 13 5-34 U/L Alanine Aminotransferase (ALT/SGPT) 28 0-55 U/L Alkaline Phosphatase 98 40-136 U/L Myoglobin 27.2 10.0-92.0 NG/ML Troponin I < 0.028 <0.028 NG/ML Total Protein 8.5 H 6.4-8.2 GM/DL Albumin 4.8 H 3.2-4.5 GM/DL My Orders Orders - PALMIRA BILLINGSLEY MD Cbc With Automated Diff (03/12/20 21:16) Magnesium (03/12/20 21:16) Chest 1 View, Ap/Pa Only (03/12/20 21:16) Ekg Tracing (03/12/20 21:16) Comprehensive Metabolic Panel (03/12/20 21:16) Myoglobin Serum (03/12/20 21:16) Protime With Inr (03/12/20 21:16) Partial Thromboplastin Time (03/12/20 21:16) O2 (03/12/20 21:16) Monitor-Rhythm Ecg Trace Only (03/12/20 21:16) Lipid Panel (03/13/20 06:00) Ed Iv/Invasive Line Start (03/12/20 21:16) Troponin I (03/12/20 21:16) Metoprolol Tartrate Injection (Lopressor (03/12/20 21:30) Ekg Tracing (03/12/20 21:56) Metoprolol Succinate (Xl) Tab (Toprol Xl (03/12/20 22:00) Medications Given in ED Current Medications Medications Dose Ordered Sig/Tobias Route Start Time Stop Time Status Last Admin Dose Admin Metoprolol Succinate 25 mg ONCE ONCE PO 03/12/20 22:00 03/12/20 22:01 DC 03/12/20 22:02 25 MG Metoprolol Tartrate 5 mg ONCE ONCE IV 03/12/20 21:30 03/12/20 21:31 DC 03/12/20 21:35 5 MG Vital Signs/I&O 03/12/20 21:08 Temp 36.2 Pulse 120 Resp 18 B/P (MAP) 144/104 (117) Pulse Ox 100 O2 Delivery Room Air Blood Pressure Mean: 117 Progress Progress Note #1: Time: 21:49 Progress Note EKG was reviewed and compared with prior. EKG was also reviewed by Dr. Jean. Rhythm is likely PAT. Dr. Jean recommends a dose of Lopressor followed by Toprol-XL and prompt follow-up with Dr. Agee. Progress Note #2: Time: 22:11 Progress Note Fabienne had an excellent response to the Lopressor. Toprol-XL 25 mg was add itionally given. Repeat EKG showed normal sinus rhythm with early repolarization pattern. Initial ECG Impression Date: Mar 12, 2020 Initial ECG Impression Time: 21:08 Initial ECG Rate: 117 Comment Tachycardia, likely PAT. No ST elevation or depression. EKG : EKG Time: 21:54 Rate: 87 Comment Normal sinus rhythm with resolution of PAT. Minimal ST elevation consistent with early repolarization pattern in a juvenile patient. No abnormal intervals or axis deviation. Diagnostic Imaging Diagonstic Imaging: Xray Plain Films/CT/US/NM/MRI: chest Comments Chest x-ray viewed by me and report reviewed. See report below: NAME: FABIENNE BERMEO V MED REC#: [id number] PT STATUS: REG ER : 1990 PHYSICIAN: PALMIRA BILLINGSLEY MD ADMIT DATE: 03/12/20/ER Signed Date of Exam:03/12/20 CHEST 1 VIEW, AP/PA ONLY PATIENT HISTORY: Chest pain. Dizziness and syncope. TECHNIQUE: Single frontal view of the chest. COMPARISON: 08/30/2018. FINDINGS: The lung volumes are normal. No focal consolidation is seen. No large pleural effusion or pneumothorax is seen. The cardiomediastinal silhouette is normal in size and contour. No acute osseous abnormality is seen. conveyor monitor device is noted. IMPRESSION: No acute pulmonary abnormality seen. Dictated by: Dictated on workstation # [id number] Dict: 03/12/202132 Trans: 03/12/202142 PJE [id number] Interpreted by: TYRONE MANCIA MD Electronically signed by: TYRONE MANCIA MD 03/12/202142 Departure Impression Primary Impression: PAT (paroxysmal atrial tachycardia) Additional Impressions: Palpitations Hypertension Qualified Codes: I10 - Essential (primary) hypertension Disposition: HOME, SELF-CARE Condition: Improved Departure-Patient Inst. Decision time for Depature: 21:57 Referrals: MODESTO WRAY MD (PCP/Family) Primary Care Physician Patient Instructions: Tachycardia Add. Discharge Instructions: Your EKG likely represented paroxysmal atrial tachycardia. This may be treatable with beta blockers. Toprol-XL 25 mg daily as recommended starting dose. Please call Dr. Agee's office tomorrow morning to arrange prescription if he is agreeable to this approach. In the meantime, return to care if you have any worsening of symptoms. Avoid stimulants as much as possible. All discharge instructions reviewed with patient and/or family. Voiced understanding. Copy Copies To 1: ISA AGEE MD FACP FACC CCDS Copies To 2: MODESTO WRAY MD, JOSHUA T MD Mar 12, 2020 21:50
[2020-03-12 22:11] VITALS: BP 142/85
== END 2020-03-12 22:13 | disposition home or self-care (01) ==
LOC: EDUNIT# 21:05 → ER 21:07
DX: I47.1 Supraventricular tachycardia (principal); I10 Essential (primary) hypertension; Z80.42 Family history of malignant neoplasm of prostate
CPT/HCPCS: 36415; 71045; 80053; 83735; 83874; 84484; 85025; 85610; 85730; 93005; 93041

== ENCOUNTER → 2020-03-18 | Outpatient (CLI) | payer OTHER | LOC: CARD 14:00 | PROVIDERS: ATTEND Internal Medicine Cardiovascular Disease | DX: R00.2 Palpitations (principal); R55 Syncope and collapse | CPT/HCPCS: 93306; 93351 ==

== ENCOUNTER → 2021-02-25 | Outpatient (CLI) | payer OTHER | LOC: LABNPT 08:19 | PROVIDERS: ATTEND Student in an Organized Health Care Education/Training Program | DX: Z20.822 Contact with and (suspected) exposure to COVID-19 (principal) | CPT/HCPCS: 87635 ==

== ENCOUNTER 2021-04-06 11:52 | Outpatient (CLI) | payer OTHER | END 2021-04-06 12:05 | LOC: SLEEP 11:52 | PROVIDERS: ATTEND Otolaryngology Otolaryngology/Facial Plastic Surgery | DX: G47.33 Obstructive sleep apnea (adult) (pediatric) (principal) | CPT/HCPCS: G0399 ==